=== PATIENT | female | born 1975 | race Caucasian/White ===

== ENCOUNTER → 2019-12-05 | Outpatient (CLI) | payer OTHER, SELFPAY ==
[2019-12-08 20:40] LABS: HPV Reflexed? NOT INDICATED
== END | disposition home or self-care (01) ==
LOC: LABSPEC 12-06 08:44
PROVIDERS: PCP Family Medicine; Referring Provider Obstetrics & Gynecology; Visit Provider Obstetrics & Gynecology
DX: Z12.4 Encounter for screening for malignant neoplasm of cervix (principal)
CPT/HCPCS: 88175; G0145

== ENCOUNTER 2020-10-14 06:11 | Day surgery (SDC) | payer OTHER, SELFPAY ==
--- NOTE | 2020-10-09 13:57 | EKG12_ITS ---
Test Reason : PRE OP Blood Pressure : / mmHG Vent. Rate : 087 BPM Atrial Rate : 087 BPM P-R Int : 128 ms QRS Dur : 074 ms QT Int : 356 ms P-R-T Axes : 060 073 035 degrees QTc Int : 428 ms Normal sinus rhythm Nonspecific T wave abnormality Abnormal ECG Confirmed by KYLER RODRIGES, RUBÉN ([id number]), supervising editor trailer MUSHTAQ ORDONEZ ([id number]) on 10/10/2020 12:41:12 PM Referred By: Abhijit Ortega Confirmed By:RUBÉN CHÁVEZ MD
[2020-10-09 15:06] LABS: Hematocrit 48.7 % (37-47); Hemoglobin 15.9 g/dL (12.0-15.0); Mean Corp Hgb Conc 32.6 g/dL (32-36); Mean Corpuscular Hgb 30.3 pg (27.0-32.0); Mean Corpuscular Volume 92.9 fL (81-99); Mean Platelet Vol. 10.4 fl (6.2-12.0); Platelet Count 286 K/mm3 (150-450); RBC Distribution Width CV 11.9 % (11.6-14.6); Red Blood Count 5.24 M/mm3 (4.2-5.4); White Blood Count 10.8 K/mm3 (4.4-11.0)
[2020-10-09 15:22] LABS: Partial Thromboplast Time 26.7 Seconds (24.1-36.2); Prothrombin Time (Protime)PT. 12.4 SECONDS (11.7-14.9)
[2020-10-09 15:51] LABS: AST(SGOT) 19 U/L (15-37); Alanine Aminotransfer ALT/SGPT 35 U/L (13-56); Albumin, Serum 3.7 g/dL (3.2-5.0); Alkaline Phosphatase 73 U/L (45-117); Bilirubin, Direct 0.19 mg/dL (0.00-0.30); Globulin 4.1 g/dL (2.2-4.2); Protein, Total 7.8 g/dL (6.4-8.2); Thyroid Stim Hormone (TSH) 3.82 uIU/mL (0.358-3.74)
[2020-10-09 16:44] LABS: Creatinine, Serum 0.73 mg/dL (0.55-1.02); EST Glomerular Filtration Rate 92 mL/min (>60); Est Glom Filt Rate - Afr Amer 111 mL/min (>60); Magnesium 2.2 mg/dL (1.6-2.6)
--- NOTE | 2020-10-13 18:37 | PCM.HP.BLA ---
History and Physical Date of Admission: 10/14/20 Surgical History and Physical Raven Hein, a 45 year old female 3 0 1 0 3, presents for RAVH/BS on October 14, 2020 at 7:30. -- Heavy Menses after Ablation -- Raven is a 40 yr old here w/, Tonny for Menorrhagia and Dysmenorrhea. Periods have become heavier and more painful in the past year. Bleeding thru a super tampon and a pad several times during those days requiring associated clothing changes. Pt relates she notices a decrease in clots since ablation but heavy bleeding and cramping has resumed to previous levels. Menometrorrrhagia which began approx 1yr ago. Raven claims it started gradually and has been present intermittantly for 1 year. It occurs intermittantly. Raven characterizes the quality cramping. Severity is moderate. Associated signs and symptoms are Heavy menses x 5 days and increased cramping. MEDICATIONS HISTORY: ALLERGIES: No Known Allergies Infections - Chicken pox and Pneumonia Illnesses - Back Pain Accidents - None Hospitalizations - Childbirth and see surgery Review of Systems: GENERAL - Denies fever, or chills SKIN - Denies skin changes EYES - Denies visual changes EARS - Denies difficulty hearing NOSE - Denies nasal congestion or bleeding MOUTH - Denies sore throat or difficulty swallowing NECK - Denies pain or swelling RESPIRATORY - Denies shortness of breath or wheezing CARDIOVASCULAR - Denies palpitations or chest pain GASTROINTESTINAL - Denies nausea, vomiting, diarrhea, constipation GENITOURINARY - Denies dysuria, frequency of urination, incontinence of urine MUSCULOSKELETAL - Denies joint or muscle pain NEUROLOGICAL - Denies localized numbness or weakness PSYCHIATRIC - Denies depression or anxiety ENDOCRINE - Denies heat or cold intolerance, weight loss or gain HEMATO-IMMUNOLOGIC - Denies excesive bleeding with cuts SOCIAL HISTORY: Alcohol Use - drinks occasionally Smoking - Smokes 1 PPD Advised to quit Diet - no special diet Lifestyle - moderate stress lifestyle and Exercise - active Seat Belt Use - always Employer - [employer] Job Description - Registered Dental Assistant Rda Illicit Drug Use - denies use of street drugs Sexual Activity - Residence - Lives w/ Spouse-Sig Other Name - Tonny Cook Spouse-Sig Other Occupation - [employer] Spouse-Sig Other Phone No - [phone] Children Name(s) - 3 children Control - Tubal FAMILY HISTORY: MENSTRUAL HISTORY: LMP Known?- DefiniteAmount/Duration - 7 to 10 days, Regularity - Regular, Frequency - monthly days, LMP - 09/28/20, Age Onset Menarche - 14 PAST PREGNANCIES: Total Pregnancies - 4; Full Term Pregnancies - 3; Premature - 0; Abortions, Induced - 0; Abortions, Spontaneous - 1; Ectopics - 0; Multiple Births - 0; Living Children - 3 SURGICAL HISTORY: 1. C/Section 1998 ; - 2. C/Section, 1999 ; - 3. Tubal 1999 ; - 4. 10/02/2015 Hysteroscopy, D and C, [facility] ablation ; Dr Kevin Lentz - PHYSICAL EXAM BP- 136/86 Sitting, Right arm, regular cuff Weight- 208.21917 lbs Height- 61.5 inch BMI:38.75 CONSTITUTIONAL - NAD, well nourished, and well developed SKIN - No rash, lesions, or ulcers NECK - No nodes, no nuchal rigidity and thyroid normal size and texture LUNGS - CTA x2 without wheezes, crackles or rales CARDIAC - Regular rate and rhythm without rubs, murmurs, or gallops ABDOMEN - Without hepatosplenomegaly, distention, masses, rebound, or guarding; normal bowel sounds; no hernias NEUROLOGICAL - Cranial nerves II-XII grossly intact PSYCHIATRIC - A and O to time, place, person, mood and affect External Genitial Vagina - non-tender without lesions Urethra/Urethral Meatus - non-tender Bladder - non-tender Vagina - vaginal barber are pink and moist without loss of rugae and no evidence of atropy Cervix - without cervical motion tenderness and has normal size and features without evident lesions Uterus - multiparous size 6 cm & wt 75-125 g Adnexa - clear without massess or tenderness ASSESSMENT/PLAN: 1. Excessive And Frequent Menstruation With Regular Cycle and Secondary Dysmenorrhea Recurrent heavy menses after ablation so desires to proceed with RAVH/BS. Discussed RBAs and all questions answered.
[2020-10-14] VITALS (10 sets, daily range): BP systolic 110–150; BP diastolic 52–83; PULSE 59–86; RESP 16–18; TEMP 36.1–36.7; O2SAT 98–100; BMI 41.5
--- NOTE | 2020-10-14 | HYST_PTH ---
PATIENT: NATALIA GEORGES LOC: [facility] U#:[id number] AGE/SX: 45/F ROOM: RE10/14/[address]: Dr. Abhijit Ortega MD : [id number] BED: DIS: 10/14/2020 SPEC #: [id number] RECD: 10/14/20 12:15 STATUS: JONY CORADOTushar #: [id number] JED: 10/14/20 00:[address]: Abhijit Ortega DEPT: SURGICAL PATHOLOGY RECD BY: Crystal Huber ENTERED: 10/14/20 12:59 SP TYPE: HYSTERECT OTHR DR: Dr. Rajiv Francisco MD Tissues: Uterus, NOS Procedures: Surgery Specimen Level V HEADER OPERATION: ERAS, lap robotic vaginal hysterectomy, bilateral salpingectomy PRE-OP DIAGNOSIS: Excessive and frequent menstruation with regular cycle and secondary dysmenorrhea TISSUE SUBMITTED: Cervix, uterus and bilateral fallopian tubes MICROSCOPIC DIAGNOSIS Cervix, uterus, bilateral fallopian tubes, vaginal hysterectomy and bilateral salpingectomy: Cervix - chronic cystic cervicitis. Endometrium - secretory endometrium. Myometrium - intramural leiomyomas (largest measuring 2.5 cm in greatest dimension). - Focal adenomyosis. Bilateral fallopian tubes - hematosalpinx. - Focal endometriosis. SJ:rg 10/15/2020 MICROSCOPIC DESCRIPTION Slides are reviewed. GROSS DESCRIPTION Received in fixative is one container labeled with the patient's name and designated uterus. The specimen consists of a uterus with attached cervix and attached right and left fallopian tubes. The uterus with cervix measures 9.5 x 5.5 x 5 cm and weighs 104 gm. The ectocervix is unremarkable. The endocervical canal measures 3.5 cm in length and is grossly unremarkable. The elongated endometrial cavity measures 4.5 x 2.5 cm. The velvety, light matute endometrium measures up to 0.2 cm in thickness. The myometrium measures 2.5 cm in average thickness and contains multiple spherical, rubbery nodules ranging in size from 0.5 to 2.5 cm in greatest dimension. The right and left fallopian tubes are similar in appearance with average lengths of 5 cm and average diameters of 0.6 cm. Serial sections reveal bloody luminal contents. No mass lesions are identified. Signal Supervisor sections are submitted in ten cassettes as follows: 1 - anterior cervix, 2 - posterior cervix, 3 & 4 - anterior uterine wall, 5 & 6 - posterior uterine wall, 7 - largest myometrial mass, 8 - smaller myometrial masses, 9 - right fallopian tube, 10 - left fallopian tube. / AM:radha 10/14/20 TC:1 CPT: 41366
[2020-10-14 06:35] LABS: Bedside Glucose 101 mg/dL (70-110)
[2020-10-14] MEDS: Acetaminophen 500 MG Tablet 1000 MG PO ×2 (06:36→14:45)
[2020-10-14] MEDS: Gabapentin 600 MG Tablet PO (06:37)
[2020-10-14] MEDS: Lactated Ringers 1,000 ML 40 ML IV (07:15)
--- NOTE | 2020-10-14 07:29 | PCM.OPRPT ---
Report of Operation Date of Procedure: 10/14/20 Pre-Operative Diagnosis: Menorrhagia s/p Endometrial Ablation Post-Operative Diagnosis: Menorrhagia s/p Endometrial Ablation Surgery/Procedure Performed:: Robotic Assisted Vaginal Hysterectomy And Bilateral Salpingectomy Description of Surgical Findings:: 10 cm uterus with normal-appearing fallopian tubes and ovaries. Likely submucous fibroid in the uterus with intrauterine adhesions from prior endometrial ablation. Adhesion of omentum to lower anterior abdominal wall. Adhesions of uterus to anterior abdominal wall from prior surgery. Some adhesions of fallopian tubes to ovaries and pelvic sidewalls. software build engineer: Holland Woodruff Type of Anesthesia:: General - Endotracheal Anesthesiologist: Fortunato Murillo Specimen's removed: Uterus and bilateral fallopian tubes Drains: Gregory to straight drain Estimated Blood Loss (mL): Minimal Fluids Replaced: Crystalloid Description of Procedure: Surgeon: Abhijit Ortega MD, FACOG Indication: This is a 45 year old patient who has been having problems with extremely heavy menses. Conservative measures including an endometrial ablation has not been helpful. The patient has been counseled regarding the risks, benefits and alternatives of this procedure including the possibility of bleeding, infection, and injury to surrounding structures such as bowel bladder and all questions were answered. She understands that if BSO is needed that she will need to be on HRT for an indefinite period of time. Procedure: Pt taken to the operating room where, after induction of general anesthesia, the patient was prepped and draped in the usual sterile fashion and placed on a non-slip Huggy-u-vac device. Trendelenburg test was satisfactory. Bladder was drained of urine with a Gregory catheter which was left in place. Anterior cervix grasped and cervix was dilated to about 3-4 mm. Uterus sounded to 9 cms. 0-Vicryl suture was placed at the 3:00 and 9:00 position of the cervix. A small Advincula Service Restorer Emergency Uterine Manipulator was then placed in the uterus and attention was turned to the laparoscopic portion of the procedure. Ropivocaine 0.5% was injected approximately 2-3 cm superior to the umbilicus and an 8 mm robotic camera port was introduced directly with intraperitoneal placement confirmed with CO2 insufflation. 8 mm robotic side ports were introduced under direct visualization approximately 11 cm lateral and 2 cm inferior to the umbilical port. A 5 mm left upper quadrant port was introduced and airseal insufflation with CO2 was started. The above findings were noted. Robot was docked without difficulty and attention turned to the robotic portion of the procedure. Approximately 30 cc of Ropivicaine was used. After dividing the anterior omental adhesion with bipolar and monopolar cautery and sharp dissection, bilateral mesosalpinx were ligated with 35 torres bipolar coagulation to the level of the round ligament. The posterior aspect of the cervix was identified and then opened for about 1 cm using 25 watt monopolar cautery. Bladder flap was opened and divided to the level of the round ligaments using monopolar cautery. Progressive bites were then ligated on each side of the cervix with 35 torres bipolar cautery to the uterine arteries. The anterior vaginal mucosa was entered and cervix circumscribed with monopolar cautery. Uterus and attached tubes were removed through the vagina. Vaginal cuff was closed first with 0-Vicryl Homar stitches placed at each angle followed by closure of the mid-cuff with 0-Monocryl V-lock suture in two layers. Pelvis was copiously irrigated with saline. Robot was undocked and trocars were removed with as much gas as possible. Incisions were closed with 4-0 Monocryl subcuticular sutures and incisions covered with steri-strips. The patient tolerated the procedure well and was taken to the recovery room in satisfactory condition. Sponge, instruments and needle counts were all correct. Gregroy catheter was removed. There were no apparent complications of the surgery. Ancef 2 gms IV was given prior to the procedure. Estimated Blood Loss: Minimal Specimen to Pathology: Uterus and bilateral fallopian tubes Grafts/Implants Used: None - Complications None - Admit VTE Documentation VTE Present on Admission: Yes VTE Mechan Device Prophylaxis: SCD's
--- NOTE | 2020-10-14 07:34 | PCM.DC.VHY ---
Discharge Diet: No Restrictions Discharge Activity: Return to Normal Activity, May Not Drive - while taking narcotic pain medications., May Shower, May Take a Tub Bath May resume sexual activity in: 6-8 weeks Call your doctor if your incision/area has: Continuous Slow Oozing, Sudden Increased Bleeding, Increased Pain/ Swelling, Increased Redness, Foul Smelling Discharge Call your doctor if you observe: Fever of 101 or Higher, Inability to urinate, Inability to have a bowel movement, Using more than one pad per hour Additional Instructions: Nothing in the vagina for 6 weeks please; no lifting more than 20-25 lbs for 6 weeks. Use Ibuprophen 800 mg orally every 8 hours as needed for pain. Can also add Tylenol 1000 mg every 8 hours if needed for pain. If Ibuprophen and Tylenol are not effective then use the Oxycodone but keep in mind it can cause serious constipation issues. Drink lots of water. Call if bleeding more than a pad per hour. Use the colace as constipation is a big issue after this type of surgery. Steps and walking are OK. Activity is encouraged but do not over do it !! Allergies/Adverse Reactions: Allergies No Known Allergies Allergy (Verified 10/14/20 06:28) Medications to take at Discharge ibuprofen 600 mg tablet 600 mg PO TID-QID PRN #90 tab 11/11/17 Docusate Sodium [Colace] 100 mg PO BID PRN PRN #60 capsule 10/14/20 Oxycodone [Oxyir] 5 mg PO Q6H PRN PRN 7 Days #10 tablet 10/14/20 The following prescriptions were given: Docusate Sodium [Colace] 100 mg PO BID PRN PRN #60 capsule PRN Reason: Constipation Transmission Status: Pending to [facility] Oxycodone [Oxyir] 5 mg PO Q6H PRN PRN 7 Days #10 tablet PRN Reason: Pain Score 6-10 Transmission Status: Sent to [facility] Primary Care Physician: Rajiv Francisco MD [Primary Care Provider] - Test Results: Test results from this visit will be discussed in further detail at your follow-up appointment, if applicable. Please Follow Up With: Abhijit Ortega MD When: 2 to 3 weeks
[2020-10-14] MEDS: Cefazolin 2 GM in 0.9% Normal Saline 100 ML IV (07:47)
[2020-10-14] MEDS: Ropivacaine 0.5% 30 ML Vial (08:20)
[2020-10-14] MEDS: Ondansetron 4 MG/2 ML Vial IV (11:10)
[2020-10-14] MEDS: Lactated Ringers 1,000 ML 100 ML IV (11:24)
[2020-10-14] MEDS: oxyCODONE 5 MG Tablet PO (12:31)
--- NOTE | 2020-10-14 13:48 | SUR.PHASEII ---
bladder scanned for 35ml . pt drinking fluids without problem.
--- NOTE | 2020-10-14 16:02 | SUR.PHASEII ---
ABDOMINAL DRESSINGS C/D/I. CHANGED PERIPAD ONCE POST-OP IN A.C. REPORTS MILD TO NO ABDOMINAL PAIN. VOIDED, BLADDER SCANNED FOR 150 ML BUT STATES SHE NO LONGER FEELS URGE TO VOID, FELT IF SHE VOIDED SUFFICIENT AMOUNT. DENIES NAUSEA.
== END 2020-10-14 16:26 | disposition home or self-care (01) ==
LOC: SDC 06:12 → AC 06:12
PROVIDERS: Anesthesiology; PCP Family Medicine; Referring Provider Obstetrics & Gynecology; Visit Provider Obstetrics & Gynecology
PROC: 0UT94ZZ Resection of Uterus, Percutaneous Endoscopic Approach (ICD-10-PCS; CPT 12001; principal; 2020-10-14 07:10)
DX: D25.1 Intramural leiomyoma of uterus (principal); N80.0 Endometriosis of uterus; S30.814A Abrasion of vagina and vulva, initial encounter; N92.0 Excessive and frequent menstruation with regular cycle; N94.5 Secondary dysmenorrhea; Y84.8 Other medical procedures as the cause of abnormal reaction of the patient, or of later complication, without mention of misadventure at the time of the procedure; Y93.9 Activity, unspecified; Z20.828 Contact with and (suspected) exposure to other viral communicable diseases; F17.210 Nicotine dependence, cigarettes, uncomplicated
CPT/HCPCS: 00840; 12001; 58571; S2900; 36415; 80076; 82565; 82962; 83735; 84443; 85027; 85610; 85730; 86850; 86900; 86901; 87426; 88307; 93005; C9803; J7120; J2405